=== PATIENT | male | born 1965 | race American Indian/Alaskan Native ===

== ENCOUNTER 2019-03-13 00:30 | Emergency (ER) | payer OTHER ==
[2019-03-13] MEDS ORDERED: LIDOCAINE VISCOUS 2% ONE (01:39)
[2019-03-13] MEDS ORDERED: LIDOCAINE VISCOUS 2% MM NR (01:45)
[2019-03-13] MEDS ORDERED: BACTRIM DS PO ONE (02:12)
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
[2019-03-13 04:56] VITALS: BP 131/72
== END 2019-03-13 02:55 | disposition home or self-care (01) ==
LOC: ED 00:30
DX: S01.511A Laceration without foreign body of lip, initial encounter (principal); Z79.899 Other long term (current) drug therapy; Z98.890 Other specified postprocedural states; Y04.2XXA Assault by strike against or bumped into by another person, initial encounter; Y93.89 Activity, other specified; Y92.89 Other specified places as the place of occurrence of the external cause; Y99.8 Other external cause status
CPT/HCPCS: 99282